=== PATIENT | female | born 1950 | race Caucasian/White ===

== ENCOUNTER → 2017-01-27 | Outpatient (CLI) | payer OTHER ==
[~2017-01-27] VITALS: Ht 160 cm; Wt 86.0 kg
[~2017-01-27] MED LIST: CALCIUM 600 +1 EA12 PO; ERGOCALCIF50000 UNIT PO; SIMVASTATIN40 MG PO
[2017-01-27 17:30] VITALS: BP 147/79
== END | disposition home or self-care (01) ==
LOC: IVINF 17:05
DX: M81.0 Age-related osteoporosis without current pathological fracture (principal)
CPT/HCPCS: 96365; J3489

== ENCOUNTER 2017-05-11 09:07 | Emergency (ER) | payer OTHER ==
[~2017-05-11] VITALS: Ht 162.6 cm; Wt 86.3 kg
[2017-05-11] MEDS ORDERED: STOOL SOFTENER250 MG PO (11:20)
[2017-05-11] MEDS ORDERED: PERCOCET 5/31 TABLET PO (11:20)
[2017-05-11] MEDS ORDERED: ZOFRAN ODT4 MG PO (11:20)
[2017-05-11 12:00] VITALS: BP 128/88
== END 2017-05-11 12:01 | disposition home or self-care (01) ==
LOC: EME 09:07
DX: S42.292A Other displaced fracture of upper end of left humerus, initial encounter for closed fracture (principal); W18.12XA Fall from or off toilet with subsequent striking against object, initial encounter; I10 Essential (primary) hypertension; E78.00 Pure hypercholesterolemia, unspecified
CPT/HCPCS: 73030; 99281; 99283; J1885